=== PATIENT | male | born 1980 | race Caucasian/White ===

== ENCOUNTER 2025-04-15 17:40 | Emergency (ER) | payer BC, SELFPAY ==
[2025-04-15 17:42] VITALS: BP 148/88; PULSE 103; RESP 18; TEMP 36.8; O2SAT 97; BMI 36.0
[2025-04-15] MEDS: DiphenhydrAMINE 50 MG/ML Syringe IV (17:45)
--- NOTE | 2025-04-15 17:48 | EX.ED.DYSGE1 ---
HPI History of Present Illness Chief Complaint: Allergic Reaction Narrative Narrative: 44-year-old male who denies significant past medical history presents with allergy to bee sting. He states that earlier today, few hours ago, carole got caught in his glove at work. It stung him on the left wrist. Since then, he has developed generalized pruritus and itchy rash, and felt his face was swelling as well as his feet in addition to his left wrist where he was stung. He states he does not have a bee sting allergy and has been stung multiple times previously. He denies any throat closing but states that his face feels swollen. No difficulty swallowing. He states that his feet were itchy, and as he was driving home from [place], he tried to elevate them thinking that it would improve. PFSH PFSH Medical History no medical history Home Medications ?Medication ?Instructions ?Recorded ?Last Taken ?Type epinephrine 0.3 mg/0.3 mL 0.3 mg (0.3 mL) IM Q10M PRN PRN 04/15/25 Unknown Rx injection, auto-injector anaphylaxis #2 ea Allergy/AdvReac Type Severity Reaction Status Date / Time bee venom protein (honey Allergy rash, sob Verified 04/15/25 17:43 bee) (bee sting) Social History Smoking Status: Light Smoker (<10/day) ROS ROS ED ROS Narrative Review of systems positive for bee sting to left wrist with localized swelling and erythema. Positive diffuse itchy rash. Positive swelling of feet and face. Currently no difficulty swallowing or throat closing sensation. EXAM Physical Exam Narrative Exam Narrative: Afebrile. Vital signs noted. HEENT examination shows no evidence of angioedema. No drooling or trismus. Airway patent. Speaking in full sentences. No stridor. Cardiovascular examination reveals mild tachycardia. Lungs are clear to auscultation bilaterally without wheezing, moving a good amount of air. Inspection of the left wrist does show localized erythema and swelling. He does have a diffuse pruritic rash mainly located on his torso and upper extremities as well. Const Vital Signs: 04/15/25 17:42 04/15/25 19:37 04/15/25 20:16 Temperature 98.3 F Temperature Source Oral Pulse Rate 103 H 98 111 H Respiratory Rate 18 16 16 Blood Pressure 148/88 H 128/82 H Blood Pressure Mean 108 97 Pulse Ox 97 98 97 Oxygen Delivery Method Room Air Room Air Room Air 04/15/25 21:05 Temperature Temperature Source Pulse Rate 106 H Respiratory Rate 20 H Blood Pressure 130/86 H Blood Pressure Mean 100 Pulse Ox 97 Oxygen Delivery Method Room Air MDM MDM MDM Narrative Medical decision making narrative: Differential diagnosis includes but not limited to localized reaction versus anaphylaxis. Patient has not had prior bee sting allergies. Additionally, this happened a few hours ago. 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 His heart rate has improved. He is not hypotensive. Currently I do not feel he requires epinephrine as the bee sting was a few hours ago as well. Pulse ox 97% on room air. He was administered Solu-Medrol 125 mg intravenously as well as Benadryl 50 mg intravenously. He will be observed in the emergency department. Regardless, I do feel that he should be carrying around epinephrine pens for the next time he is stung it may be more severe. Upon repeat examination, he states his feet are swollen and they are hurting him. He is not hypotensive. I discussed with him the use of epinephrine, and he accepts. He was given an intramuscular injection of 0.3 mg of epinephrine. Repeat examination at approximately 9:40 PM does show that his rash has improved, but he states he still feels the same. At this point in time, he has been observed in the emergency department for approximately 4 hours, and additionally this happened a few hours prior to arrival. I feel he can be discharged with a prescription for epinephrine to use should he be stung again. He will take [id number] Benadryl as needed. Return instructions to the emergency department were reviewed. Disposition is discharged home in stable condition. Of note, the patient does state that he is out of town and actually lives 3 hours away and is working down in [place]. He is going to his rental this evening so I will call the prescription to this hospital for meds to bed. Disposition is discharged home in stable condition. History & Record Review Discussion w/independent historian: Patient Discharge Plan Triage Chief Complaint: Allergic Reaction ED Provider: Zachery Collier Dx/Rx/DC Orders Clinical Impression: Allergic reaction to bee sting Instructions: ED BEE STING General Allergic Rxn Prescriptions: New epinephrine 0.3 mg/0.3 mL auto-injector 0.3 mg IM Q10M PRN PRN (Reason: anaphylaxis) Qty: 2 0RF Rx Instructions: for 2 doses Primary Care Provider: Care Physician,No Primary Referrals: Care Physician,No Primary [Primary Care Provider, Medical] Activity Restrictions/Additional Instructions: Continue [id number] Benadryl as needed. You have been written a prescription for epinephrine to use if you are stung by a bee again. Return to the emergency department with increased difficulty breathing or swallowing, new or worsening symptoms. Follow-up with your primary care provider in the next 3 to 5 days. Print Language: Omani Disposition Disposition: Home, Self Care
[2025-04-15 19:37] VITALS: PULSE 98; RESP 16; O2SAT 98
[2025-04-15] MEDS: Epi Pen (EQUIV) 0.3 MG Syringe IM (19:50)
[2025-04-15 20:16] VITALS: BP 128/82; PULSE 111; RESP 16; O2SAT 97
[2025-04-15 21:05] VITALS: BP 130/86; PULSE 106; RESP 20; O2SAT 97
[2025-04-15 21:54] VITALS: BP 132/76; PULSE 108; RESP 24; TEMP 36.6; O2SAT 100
== END 2025-04-15 21:54 | disposition home or self-care (01) ==
PROVIDERS: Emergency Provider Emergency Medicine; Visit Provider Emergency Medicine
DX: T63.441A Toxic effect of venom of bees, accidental (unintentional), initial encounter (principal)
CPT/HCPCS: 96372; 96374; 96375; 99283